=== PATIENT | female | born 1970 | race Caucasian/White ===

== ENCOUNTER 2018-09-26 08:06 | Inpatient (IN) ==
[2018-09-26 09:03] LABS: Baso % (Auto) 0.2 % (0.0-2.0); Hematocrit 34.6 % (35.0-46.0); Hemoglobin 12.1 gm/dL (11.6-15.3); Lymph % (Auto) 6.9 % (9.0-44.0); Mean Corpuscular HGB Conc 35.1 % (32.0-36.0); Mean Corpuscular Hemoglobin 32.3 pg (27.0-34.0); Mean Corpuscular Volume 92.1 fL (80.0-100.0); Mean Platelet Volume 7.7 fL (7.0-11.0); Mono # (Auto) 0.8 th/mm3 (0.0-0.9); Mono % (Auto) 5.2 % (0.0-8.0); Neut # (Auto) 12.8 th/mm3 (1.8-7.7); Neut % (Auto) 87.7 % (16.0-70.0); Platelet Count 308 th/mm3 (150-450); Red Blood Count 3.76 mil/mm3 (4.00-5.30); Red Cell Distribution Width 13.2 % (11.6-17.2); White Blood Count 14.6 th/mm3 (4.0-11.0)
[2018-09-26] MEDS ORDERED: Diatrizoate Meglum/Diatrizoate Sod Liq 9 ML UDC PO ONE (09:14)
[2018-09-26] MEDS ORDERED: Morphine Inj 4 MG/ML Vial IV.PUSH ONE ×3 (09:14→12:45)
[2018-09-26] MEDS ORDERED: Sod Chloride 0.9% Inj 1,000 ML IV.SIG SCH (09:15)
[2018-09-26 09:16] LABS: Anion Gap 9 meq/L (5-15); Aspartate Aminotransferase 10 U/L (15-37); Blood Urea Nitrogen 16 mg/dL (7-18); Calcium 8.2 mg/dL (8.5-10.1); Carbon Dioxide 27.2 meq/L (21.0-32.0); Chloride 103 meq/L (98-107); Glomerular Filtration Rate Greater Than 89 mL/min (>89); Glucose,Random 147 mg/dL (74-106); Lipase 118 U/L (73-393); Potassium 3.1 meq/L (3.5-5.1); Sodium 139 meq/L (136-145)
[2018-09-26 09:17] LABS: Alanine Aminotransferase 11 U/L (10-53)
[2018-09-26 09:20] LABS: Alkaline Phosphatase 67 U/L (45-117); Total Protein 6.9 g/dL (6.4-8.2)
--- NOTE | 2018-09-26 09:24 | ED ---
HPI General Chief complaint: Abdominal Pain Stated complaint: Abd Pain/Right Side/Fever Symptoms Time Seen by Provider: 09/26/18 09:21 Source: patient Mode of arrival: ambulatory Limitations: no limitations History of Present Illness HPI narrative: 48-year-old female here for evaluation of abdominal pain. The patient reports that 2 weeks ago she began to have lower abdominal pain that was described as sharp/crampy. She attributed this pain to her menstrual period. Over the last 4 days she began to notice right upper quadrant abdominal pain that was also described as sharp as well as dark urine. She called a pharmacy and was started on nitrofurantoin for suspected UTI. When she woke up this morning she had 4 episodes of bilious/nonbloody emesis. Bowel movements have been normal. She reports having a fever for the last 4 days as high as 100.8 F. Her pain is mainly located in the right upper quadrant of her abdomen, however she does have lower abdominal discomfort as well as diffuse abdominal discomfort. Her pain is worse with movements and palpation. No dysuria, hematuria, or pyuria. History of section and bilateral tubal ligation. No other abdominal surgeries. Related Data Home Medications Medication Instructions Recorded Confirmed benzonatate [Tessalon Perles] 200 mg PO TID PRN 09/26/18 09/26/18 bupropion HCl 100 mg PO BID 09/26/18 09/26/18 carisoprodol [Soma] 250 mg PO QID PRN 09/26/18 09/26/18 divalproex 750 mg PO QDRHS 09/26/18 09/26/18 nitrofurantoin macrocrystal 100 mg PO BID 09/26/18 09/26/18 Allergies Allergy/AdvReac Type Severity Reaction Status Date / Time penicillin G Allergy Severe RESPIRATORY Verified 09/26/18 11:03 ARREST Sulfa (Sulfonamide Allergy Severe HIVES Verified 09/26/18 11:03 Antibiotics) Review of Systems ROS: all other systems reviewed are negative [facility] Medical History Medical History COPD (chronic obstructive pulmonary disease) (Acute) delivery delivered (Acute) Surgical History Surgical History H/O tubal ligation (Acute) Social History Social History Substance History: No History of Abuse Second Hand Smoke Exposure: Yes Smoking Status: Current every day smoker Tobacco Type: Cigarettes How Often Do You Have a Drink Containing Alcohol: Monthly or less Recent Travel in [facility] within the Last 8 Weeks: No Recent Out of Country Travel within the Last 8 Weeks: No Exam Narrative Exam Narrative: GENERAL: Well-developed, well-nourished, no apparent distress. SKIN: Focused skin assessment warm/dry. No rash. HEAD: Atraumatic. Normocephalic. EYES: Pupils equal and round. No scleral icterus. No injection or drainage. ENT: No nasal bleeding or discharge. Mucous membranes pink and moist. NECK: Trachea midline. No JVD. CARDIOVASCULAR: Regular rate and rhythm. No murmur appreciated. RESPIRATORY: No accessory muscle use. Clear to auscultation. Breath sounds equal bilaterally. GASTROINTESTINAL: Abdomen soft, nondistended. Mild epigastric and right upper quadrant abdominal tenderness. Moderate right lower quadrant tenderness without peritoneal signs. The rest of her abdomen is mildly tender without peritoneal signs. No hernias. Normal bowel sounds. MUSCULOSKELETAL: No obvious deformities. No clubbing. No cyanosis. No edema. No CVA tenderness. NEUROLOGICAL: Awake and alert. No obvious cranial nerve deficits. Motor grossly within normal limits. Normal speech. PSYCHIATRIC: Appropriate mood and affect; insight and judgment normal. Course Initial Documented Vital Signs Temperature 99.5 F 09/26/18 08:10 Pulse Rate 105 H 09/26/18 08:10 Respiratory Rate 18 09/26/18 08:10 Blood Pressure 140/65 09/26/18 08:10 Pulse Oximetry 100 09/26/18 08:10 Last Documented Vital Signs Temperature 99.5 F 09/26/18 08:10 Pulse Rate 87 09/26/18 09:30 Respiratory Rate 16 09/26/18 09:30 Blood Pressure 121/71 09/26/18 09:30 Pulse Oximetry 98 09/26/18 09:30 Medical Decision Making [facility] Narrative Medical decision making narrative: Vital signs reviewed and show a temp of 99.5 F. CBC is remarkable for WBC 14.6 with 87.7% neutrophils. CMP is remarkable for potassium 3.1, random glucose 147 UA shows small occult blood, few mucus. Right upper quadrant ultrasound: CONCLUSION:1. Multiple gallstones in the gallbladder with thickening of the gallbladder wall at 5 mm. This can be seen with acute or chronic cholecystitis.2. The common bile duct is dilated at 10 mm. No dilated biliary ducts are demonstrated at this time. Patient has a penicillin allergy and was therefore given a dose of IV Levaquin and IV Flagyl. CT abdomen pelvis: CONCLUSION:1. Thick-walled, distended gallbladder with pericholecystic fluid and cholelithiasis. Findings raise the possibility of acute cholecystitis. Clinical correlation is recommended.2. Mild central intrahepatic and extrahepatic biliary ductal dilatation. Correlation with alkaline phosphatase and bilirubin levels is suggested to rule out bladder obstruction.3. Hepatosplenomegaly.4. Markedly enlarged fibroid uterus.5. Mild degenerative changes throughout the thoracolumbar spine. Case discussed with on-call general surgeon Dr. Harris who will admit the patient to his service and plans for cholecystectomy. The patient was made aware of all findings and plan. Medical Screen Exam Complete: Yes Emergency Medical Condition: Yes Differential Diagnosis Differential Diagnosis: Cholelithiasis, cholecystitis, appendicitis, pancreatitis, gastritis, peptic ulcer disease, colitis, UTI, pyelonephritis, cystitis Lab Data Result diagrams: 09/26/18 08:20 09/26/18 08:20 POC Results POC Urine Results Negative Lab Results 09/26/18 09/26/18 09/26/18 Range/Units 08:20 08:20 09:15 WBC 14.6 H (4.0-11.0) th/mm3 RBC 3.76 L (4.00-5.30) mil/mm3 Hgb 12.1 (11.6-15.3) gm/dL Hct 34.6 L (35.0-46.0) % MCV 92.1 (80.0-100.0) fL MCH 32.3 (27.0-34.0) pg MCHC 35.1 (32.0-36.0) % RDW 13.2 (11.6-17.2) % Plt Count 308 (150-450) th/mm3 MPV 7.7 (7.0-11.0) fL Neut % (Auto) 87.7 H (16.0-70.0) % Lymph % (Auto) 6.9 L (9.0-44.0) % [place] % (Auto) 5.2 (0.0-8.0) % Eos % (Auto) 0.0 (0.0-4.0) % Baso % (Auto) 0.2 (0.0-2.0) % Neut # (Auto) 12.8 H (1.8-7.7) th/mm3 Lymph # (Auto) 1.0 (1.0-4.8) th/mm3 Butler # (Auto) 0.8 (0.0-0.9) th/mm3 Eos # (Auto) 0.0 (0.0-0.4) th/mm3 Baso # (Auto) 0.0 (0.0-0.2) th/mm3 WBC Differential . Differential Comment Auto diff final PT (9.8-11.6) sec INR Ratio APTT (23.4-31.7) sec Sodium 139 (136-145) meq/L Potassium 3.1 L (3.5-5.1) meq/L Chloride 103 (98-107) meq/L Carbon Dioxide 27.2 (21.0-32.0) meq/L Anion Gap 9 (5-15) meq/L BUN 16 (7-18) mg/dL Creatinine 0.65 (0.50-1.00) mg/dL Estimated GFR Greater than 89 (>89) mL/min Random Glucose 147 H (74-106) mg/dL Calcium 8.2 L (8.5-10.1) mg/dL Magnesium 2.0 (1.5-2.5) mg/dL Total Bilirubin 0.1 L (0.2-1.0) mg/dL AST 10 L (15-37) U/L ALT 11 (10-53) U/L Alkaline Phosphatase 67 (45-117) U/L Total Protein 6.9 (6.4-8.2) g/dL Albumin 3.0 L (3.4-5.0) g/dL Lipase 118 (73-393) U/L Urine Color Yellow (Yellw/Straw) Urine Clarity Clear (Clear) Urine pH 6.0 (5.0-8.5) Ur Specific [place] 1.020 (1.002-1.035) Urine Protein Negative (Neg-Trace) mg/dL Urine Glucose (UA) Negative (Negative) mg/dL Urine Ketones Negative (Negative) mg/dL Urine Occult Blood Small H (Negative) Urine Nitrate Negative (Negative) Urine Bilirubin Negative (Negative) Urine Urobilinogen Less than 2 (Less than 2) mg/dL Ur Leukocyte Esterase Negative (Negative) Urine RBC 1 (0-3) /hpf Urine WBC Less than 1 (0-5) /hpf Ur Squamous Epith Cells 1 (0-5) /hpf Urine Mucus Few H (Occasional) /lpf Micro UA Comment Culture not ind Ur Microscopic Review Not Reportable Urine Culture Comments Culture not ind 09/26/18 Range/Units 09:20 WBC (4.0-11.0) th/mm3 RBC (4.00-5.30) mil/mm3 Hgb (11.6-15.3) gm/dL Hct (35.0-46.0) % MCV (80.0-100.0) fL MCH (27.0-34.0) pg MCHC (32.0-36.0) % RDW (11.6-17.2) % Plt Count (150-450) th/mm3 MPV (7.0-11.0) fL Neut % (Auto) (16.0-70.0) % Lymph % (Auto) (9.0-44.0) % Butler % (Auto) (0.0-8.0) % Eos % (Auto) (0.0-4.0) % Baso % (Auto) (0.0-2.0) % Neut # (Auto) (1.8-7.7) th/mm3 Lymph # (Auto) (1.0-4.8) th/mm3 Butler # (Auto) (0.0-0.9) th/mm3 Eos # (Auto) (0.0-0.4) th/mm3 Baso # (Auto) (0.0-0.2) th/mm3 WBC Differential Differential Comment PT 9.9 (9.8-11.6) sec INR 1.0 Ratio APTT 32.1 H (23.4-31.7) sec Sodium (136-145) meq/L Potassium (3.5-5.1) meq/L Chloride (98-107) meq/L Carbon Dioxide (21.0-32.0) meq/L Anion Gap (5-15) meq/L BUN (7-18) mg/dL Creatinine (0.50-1.00) mg/dL Estimated GFR (>89) mL/min Random Glucose (74-106) mg/dL Calcium (8.5-10.1) mg/dL Magnesium (1.5-2.5) mg/dL Total Bilirubin (0.2-1.0) mg/dL AST (15-37) U/L ALT (10-53) U/L Alkaline Phosphatase (45-117) U/L Total Protein (6.4-8.2) g/dL Albumin (3.4-5.0) g/dL Lipase (73-393) U/L Urine Color (Yellw/Straw) Urine Clarity (Clear) Urine pH (5.0-8.5) Ur Specific [place] (1.002-1.035) Urine Protein (Neg-Trace) mg/dL Urine Glucose (UA) (Negative) mg/dL Urine Ketones (Negative) mg/dL Urine Occult Blood (Negative) Urine Nitrate (Negative) Urine Bilirubin (Negative) Urine Urobilinogen (Less than 2) mg/dL Ur Leukocyte Esterase (Negative) Urine RBC (0-3) /hpf Urine WBC (0-5) /hpf Ur Squamous Epith Cells (0-5) /hpf Urine Mucus (Occasional) /lpf Micro UA Comment Ur Microscopic Review Urine Culture Comments Imaging Data Radiologist's impression: Abdomen/Pelvis CT 09/26/18 09:14 CONCLUSION: 1. Thick-walled, distended gallbladder with pericholecystic fluid and cholelithiasis. Findings raise the possibility of acute cholecystitis. Clinical correlation is recommended. 2. Mild central intrahepatic and extrahepatic biliary ductal dilatation. Correlation with alkaline phosphatase and bilirubin levels is suggested to rule out bladder obstruction. 3. Hepatosplenomegaly. 4. Markedly enlarged fibroid uterus. 5. Mild degenerative changes throughout the thoracolumbar spine. Gallbladder Ultrasound 09/26/18 09:14 CONCLUSION: 1. Multiple gallstones in the gallbladder with thickening of the gallbladder wall at 5 mm. This can be seen with acute or chronic cholecystitis. 2. The common bile duct is dilated at 10 mm. No dilated biliary ducts are demonstrated at this time. Discharge Plan Discharge Disposition Patient Disposition: ED Admit(ED Internal Use Only) Discharge Condition Condition: Stable Discharge Details Diagnosis: Acute cholecystitis, Cholelithiasis, Uterine fibroid Physicians Team ED Provider: Amari Burks Primary Care Provider: Primary Care Physici,Shannon Rxs /Orders / Referrals /Forms Prescriptions: No Action divalproex 250 mg Tablet,Delayed Release (Dr/Ec) 750 mg PO QDRHS RF: 0 bupropion HCl 100 mg Tablet 100 mg PO BID RF: 0 benzonatate [Tessalon Perles] 100 mg Capsule 200 mg PO TID PRN (Reason: COUGH) RF: 0 nitrofurantoin macrocrystal 100 mg Capsule 100 mg PO BID RF: 0 carisoprodol [Soma] 250 mg Tablet 250 mg PO QID PRN (Reason: Spasms) RF: 0 Discharge Interventions Interventions: Vital Signs Last Done: 09/26/18 09:30 Status ED Status: With Doctor
[2018-09-26 09:46] LABS: Bilirubin,Urine Negative (Negative); Clarity,Urine Clear (Clear); Color,Urine Yellow (Yellw/Straw); Glucose,Urine (UA) Negative (Negative); Leukocyte Esterase,Urine Negative (Negative); Mucus,Urine Few /lpf (Occasional); Nitrite,Urine Negative (Negative); Squamous Epithelial Cell,Urine 1 /hpf (0-5)
[2018-09-26 09:48] LABS: Activated Partial Thrombo Time 32.1 sec (23.4-31.7); Prothrombin Time 9.9 sec (9.8-11.6)
--- NOTE | 2018-09-26 10:28 | US ---
EXAM DATE: 09/26/2018 10:23 AM EST AGE/SEX: 48 years / Female INDICATIONS: Right upper quadrant pain. CLINICAL DATA: This is the patient's initial encounter. Patient reports that signs and symptoms have been present for 2 weeks and indicates a pain score of 7/10. MEDICAL/SURGICAL HISTORY: Chronic obstructive pulmonary disease. section. COMPARISON: No prior exams available for comparison. MEASUREMENTS: Liver:__ 19.0 cm. Common Bile Duct:__ 10mm. FINDINGS: Liver: Normal echogenicity without focal lesion or ductal dilatation. Portal Vein: Hepatopedal flow seen in portal vein. Common Duct: No intraluminal mass or stone visualized. Gallbladder: There are gallstones in the gallbladder. No fluid is seen around the gallbladder. The g allbladder wall is thickened at 5 mm. Pancreas: The visualized portions are within normal limits Right Kidney: Normal echogenicity and cortical thickness. No mass or hydronephrosis. Other: None. CONCLUSION: 1. Multiple gallstones in the gallbladder with thickening of the gallbladder wall at 5 mm. This can be seen with acute or chronic cholecystitis. 2. The common bile duct is dilated at 10 mm. No dilated biliary ducts are demonstrated at this time. Electronically signed by: Everette Clayton MD Board Certified Radiologist 09/26/2018 10:26 AM EST
--- NOTE | 2018-09-26 12:32 | CT ---
EXAM DATE: 09/26/2018 12:22 PM EST AGE/SEX: 48 years / Female INDICATIONS: Right lower quadrant pain and vomiting. CLINICAL DATA: This is the patient's initial encounter. Patient reports that signs and symptoms have been present for 2 weeks and indicates a pain score of 4/10. MEDICAL/SURGICAL HISTORY: Chronic obstructive pulmonary disease. section. Tubal ligat ion. ORAL CONTRAST: Prescribed oral contrast ingested. RADIATION DOSE: 6.64 CTDI (mGy) COMPARISON: [facility] [place], [place] ABDOMEN - GALLBLADDER, 09/26/2018. . TECHNIQUE: Multiple contiguous axial images were obtained through the abdomen and pelvis following b olus infusion of 75 ml Omnipaque 350 (iohexol) nonionic water-soluble contrast as a single exam dos e. Prescribed oral contrast ingested. Using automated exposure control and adjustment of the mA and/ or kV according to patient size, radiation dose was kept as low as reasonably achievable to obtain op timal diagnostic quality images. DICOM format image data is available electronically for review and comparison. FINDINGS: Lower Lungs: The visualized lower lungs are clear. Liver: The liver is enlarged. Mild central intrahepatic and extrahepatic biliary ductal dilatation is noted. Correlation with alkaline phosphatase and bilirubin levels is suggested to rule out biliary o bstruction. The distended gallbladder demonstrates a thickened wall and contains a gallstone. Mild pe richolecystic fluid is also noted. The findings raise the possibility of acute cholecystitis. Clinica l correlation is recommended. Spleen: The spleen is mildly enlarged. Pancreas: Unremarkable without mass or calcification. Kidneys: Normal in size and shape. No evidence of mass or hydronephrosis. Adrenal Glands: Unremarkable. Aorta: The aorta and proximal iliac vessels are grossly unremarkable without aneurysmal dilation. Bowel/Mesentery: The bowel loops are grossly unremarkable. The cecum and sigmoid colon have a normal configuration. The appendix is normal. Abdominal Wall: Intact. Retroperitoneum: No evidence of adenopathy in the retrocrural, para-aortic, or deep pelvic regions. Bladder: Contours are smooth. Reproductive Organs: The uterus is markedly enlarged and contains multiple fibroids. The largest fib roid measures 10 cm in size. Inguinal: The inguinal region is unremarkable without evidence of adenopathy. Bony Structures: Mild degenerative changes are noted throughout the thoracolumbar spine. CONCLUSION: 1. Thick-walled, distended gallbladder with pericholecystic fluid and cholelithiasis. Findings raise the possibility of acute cholecystitis. Clinical correlation is recommended. 2. Mild central intrahepatic and extrahepatic biliary ductal dilatation. Correlation with alkaline p hosphatase and bilirubin levels is suggested to rule out bladder obstruction. 3. Hepatosplenomegaly. 4. Markedly enlarged fibroid uterus. 5. Mild degenerative changes throughout the thoracolumbar spine. Electronically signed by: Jose Gusman MD Board Certified Radiologist 09/26/2018 12:31 PM EST
[2018-09-26] MEDS ORDERED: Bupivacaine/Epinephrine Inj 0.25% 50 ML Vial ONE (13:41)
[2018-09-26] MEDS ORDERED: fentaNYL Citrate Inj 100 MCG/2 ML Ampul ONE (14:28)
--- NOTE | 2018-09-26 14:48 | P.HPGS ---
History of Present Illness Service: General Surgery Primary Care Physician: No Primary Care Physician History of Present Illness: 48 yo F c/o lower abdominal pain for about two weeks associated with her menstrual cycle. She frequently has mentrual cramping. Menses started at three weeks instead of 4 weeks and she thought maybe she was perimenopausal. She is not very clear on the details but it seems that a few days ago the pain began to be more in the right upper quadrant with also some persistent pain in the right lower quadrant. + emesis. A few days ago urine was dark and she received macrobid from some sort of online service for possible uti. Urine has improved in color since then. PSH includes c section and tubal ligation. She has 30 pack year smoking history and O2 sats in preop are 85-90%. - Diagnosis (1) Acute cholecystitis (2) Uterine fibroid Inpatient Certification: I certify that the inpatient services were ordered in accordance with Medicare regulations governing the order. This includes certification that hospital inpatient services are reasonable and necessary and in the case of services not specified as inpatient-only under 42 CFR 419.22(n), that they are appropriately provided as inpatient services in accordance to with the 2-midnight benchmark under 43 CFR 412.3(e) Review of Systems All other systems reviewed negative except as stated in HPI PMFSH - History History Provided By: Patient - Medical History Medical History: Medical History (Last Updated 09/26/18 @ 08:12 by Flaca King) COPD (chronic obstructive pulmonary disease) delivery delivered - Surgical History Surgical History: Surgical History (Last Updated 09/26/18 @ 08:12 by Flaca King) H/O tubal ligation - Tobacco History Second Hand Smoke Exposure: Yes Tobacco Use In Past 30 Days: Yes Smoking Status: Current every day smoker Tobacco Type: Cigarettes - Alcohol History How Often Do You Have a Drink Containing Alcohol: Monthly or less - Substance Use History Substance History: No History of Abuse - Travel History Recent Travel in the [place] Within the Last 8 Weeks: No Recent Travel Out of the Country Within the Last 8 Weeks: No - Immunization History Tetanus Immunization: <5 Years Medications and Allergies Allergies Allergy/AdvReac Type Severity Reaction Status Date / Time penicillin G Allergy Severe RESPIRATORY Verified 09/26/18 11:03 ARREST Sulfa (Sulfonamide Allergy Severe HIVES Verified 09/26/18 11:03 Antibiotics) Home Medications Medication Instructions Recorded Confirmed Type benzonatate [Tessalon Perles] 200 mg PO TID PRN 09/26/18 09/26/18 History bupropion HCl 100 mg PO BID 09/26/18 09/26/18 History carisoprodol [Soma] 250 mg PO QID PRN 09/26/18 09/26/18 History divalproex 750 mg PO QDRHS 09/26/18 09/26/18 History nitrofurantoin macrocrystal 100 mg PO BID 09/26/18 09/26/18 History Exam Vital signs: Vital Signs 09/26/18 08:10 09/26/18 09:00 09/26/18 09:30 Temperature 99.5 F Pulse Rate 105 H 90 87 Respiratory Rate 18 16 16 Blood Pressure 140/65 121/71 121/71 Pulse Oximetry 100 98 98 09/26/18 14:05 Temperature Pulse Rate 67 Respiratory Rate 16 Blood Pressure 124/78 Pulse Oximetry Intake & Output 09/25/18 09/26/18 09/26/18 18:59 06:59 18:59 Intake Total 1300 / 1300 Balance 1300 / 1300 Weight 52.163 kg Intake: IV 1300 / 1300 Levaquin 750 mg Premix Inj 150 200 / 200 ML @ 100 mls/hr IV.SIG ONCE ONE Rx#:[id number] NS Inj 1,000 ML @ 1000 mls/hr 1000 / 1000 IV.SIG BOLUS [facility]II Rx#:[id number] Flagyl 500 MG Inj 100 ML @ 100 100 / 100 mls/hr IV.SIG ONCE ONE Rx#: [id number] Narrative: GENERAL: Awake and alert. No acute distress. Cooperative. HEAD: Normocephalic. Atraumatic. EYES: Pupils equal round and reactive to light bilaterally. No scleral icterus. ENT: Moist oral mucosa. NECK: Trachea midline. CHEST: Lungs clear to auscultation bilaterally with no wheezing or rhonchi. No respiratory distress. CARDIOVASCULAR: Regular rate and rhythm. ABDOMEN: mild RLQ ttp, moderate RUQ ttp. EXTREMITIES: No cyanosis or edema. SKIN: Warm, dry, nonjaundiced. Results - Labs 09/26/18 08:20 09/26/18 08:20 Laboratory Results - last 24 hr 09/26/18 09/26/18 09/26/18 08:20 08:20 09:15 WBC 14.6 H RBC 3.76 L Hgb 12.1 Hct 34.6 L MCV 92.1 MCH 32.3 MCHC 35.1 RDW 13.2 Plt Count 308 MPV 7.7 Neut % (Auto) 87.7 H Lymph % (Auto) 6.9 L [place] % (Auto) 5.2 Eos % (Auto) 0.0 Baso % (Auto) 0.2 Neut # (Auto) 12.8 H Lymph # (Auto) 1.0 [place] # (Auto) 0.8 Eos # (Auto) 0.0 Baso # (Auto) 0.0 WBC Differential . Differential Comment Auto diff final PT INR APTT Sodium 139 Potassium 3.1 L Chloride 103 Carbon Dioxide 27.2 Anion Gap 9 BUN 16 Creatinine 0.65 Estimated GFR Greater than 89 Random Glucose 147 H Calcium 8.2 L Magnesium 2.0 Total Bilirubin 0.1 L AST 10 L ALT 11 Alkaline Phosphatase 67 Total Protein 6.9 Albumin 3.0 L Lipase 118 Urine Color Yellow Urine Clarity Clear Urine pH 6.0 Ur Specific [place] 1.020 Urine Protein Negative Urine Glucose (UA) Negative Urine Ketones Negative Urine Occult Blood Small H Urine Nitrate Negative Urine Bilirubin Negative Urine Urobilinogen Less than 2 Ur Leukocyte Esterase Negative Urine RBC 1 Urine WBC Less than 1 Ur Squamous Epith Cells 1 Urine Mucus Few H Micro UA Comment Culture not ind Ur Microscopic Review Not Reportable Urine Culture Comments Culture not ind 09/26/18 09:20 WBC RBC Hgb Hct MCV MCH MCHC RDW Plt Count MPV Neut % (Auto) Lymph % (Auto) [place] % (Auto) Eos % (Auto) Baso % (Auto) Neut # (Auto) Lymph # (Auto) [place] # (Auto) Eos # (Auto) Baso # (Auto) WBC Differential Differential Comment PT 9.9 INR 1.0 APTT 32.1 H Sodium Potassium Chloride Carbon Dioxide Anion Gap BUN Creatinine Estimated GFR Random Glucose Calcium Magnesium Total Bilirubin AST ALT Alkaline Phosphatase Total Protein Albumin Lipase Urine Color Urine Clarity Urine pH Ur Specific [place] Urine Protein Urine Glucose (UA) Urine Ketones Urine Occult Blood Urine Nitrate Urine Bilirubin Urine Urobilinogen Ur Leukocyte Esterase Urine RBC Urine WBC Ur Squamous Epith Cells Urine Mucus Micro UA Comment Ur Microscopic Review Urine Culture Comments - Imaging Imaging: ITS Impressions Abdomen/Pelvis CT 09/26/18 09:14 CONCLUSION: 1. Thick-walled, distended gallbladder with pericholecystic fluid and cholelithiasis. Findings raise the possibility of acute cholecystitis. Clinical correlation is recommended. 2. Mild central intrahepatic and extrahepatic biliary ductal dilatation. Correlation with alkaline phosphatase and bilirubin levels is suggested to rule out bladder obstruction. 3. Hepatosplenomegaly. 4. Markedly enlarged fibroid uterus. 5. Mild degenerative changes throughout the thoracolumbar spine. Gallbladder Ultrasound 09/26/18 09:14 CONCLUSION: 1. Multiple gallstones in the gallbladder with thickening of the gallbladder wall at 5 mm. This can be seen with acute or chronic cholecystitis. 2. The common bile duct is dilated at 10 mm. No dilated biliary ducts are demonstrated at this time. CT scan - abdomen: report reviewed, image reviewed CT scan - pelvis: report reviewed, image reviewed US - abdomen: report reviewed Caprini VTE Risk Assessment Caprini VTE Risk Assessment: No/Low Risk (score <= 1) Caprini Risk Assessment Model: Point Value = 1 Point Value = 2 Point Value = 3 Point Value = 5 Age 41-60 Minor surgery BMI > 25 kg/m2 Swollen legs Varicose veins or History of unexplained or recurrent spontaneous Oral contraceptives or hormone replacement Sepsis (< 1 month) Serious lung disease, including pneumonia (< 1 month) Abnormal pulmonary function Acute myocardial infarction Congestive heart failure (< 1 month) History of inflammatory bowel disease Medical patient at bed rest Age 61-74 Arthroscopic surgery Major open surgery (> 45 min) Laparoscopic surgery (> 45 min) Malignancy Confined to bed (> 72 hours) Immobilizing plaster cast Central venous access Age >= 75 History of VTE Family history of VTE Factor V Leiden Prothrombin [id number] Lupus anticoagulant Anticardiolipin antibodies Elevated serum homocysteine Heparin-induced thrombocytopenia Other congenital or acquired thrombophilia Stroke (< 1 month) Elective arthroplasty Hip, pelvis, or leg fracture Acute spinal cord injury (< 1 month) Prophylaxis Regimen: Total Risk Factor Score Risk Level Prophylaxis Regimen 0-1 Low Early ambulation 2 Moderate Order ONE of the following: *Sequential Compression Device (SCD) *Heparin 5000 units SQ BID 3-4 Higher Order ONE of the following medications: *Heparin 5000 units SQ TID *Enoxaparin/Lovenox 40 mg SQ daily (WT < 150 kg, CrCl > 30 mL/min) *Enoxaparin/Lovenox 30 mg SQ daily (WT < 150 kg, CrCl > 10-29 mL/min) *Enoxaparin/Lovenox 30 mg SQ BID (WT < 150 kg, CrCl > 30 mL/min) AND/OR *Sequential Compression Device (SCD) 5 or more Highest Order ONE of the following medications: *Heparin 5000 units SQ TID (Preferred with Epidurals) *Enoxaparin/Lovenox 40 mg SQ daily (WT < 150 kg, CrCl > 30 mL/min) *Enoxaparin/Lovenox 30 mg SQ daily (WT < 150 kg, CrCl > 10-29 mL/min) *Enoxaparin/Lovenox 30 mg SQ BID (WT < 150 kg, CrCl > 30 mL/min) AND *Sequential Compression Device (SCD) Assessment and Plan - Assessment (1) Acute cholecystitis Code(s): K81.0 - Acute cholecystitis Status: Acute (2) Uterine fibroid Code(s): D25.9 - Leiomyoma of uterus, unspecified Status: Acute Qualifiers: Uterine leiomyoma location: unspecified location Qualified Code(s): D25.9 - Leiomyoma of uterus, unspecified - Plan She has acute cholecystitis and possibly a secondary cause of symptoms such as uterine fibroids. I recommend to proceed with laparoscopic cholecystectomy, possible open, possible intraoperative cholangiogram. I will also visualize the pelvis to be sure there are no gross abnormalities.
[2018-09-26] MEDS ORDERED: Ketamine Inj 50 MG/5 ML Syringe IV.PUSH ONE (15:47)
[2018-09-26] MEDS ORDERED: Lidocaine 2% 100 MG/5 ML Syringe ONE (15:48)
[2018-09-26] MEDS: Ketorolac Inj 30 MG/ML (IVP) Vial IV.PUSH SCH ×2 (16:15→22:38)
[2018-09-26] MEDS ORDERED: Zolpidem Tartrate 5 MG Tablet PO PRN (16:29)
[2018-09-26] MEDS ORDERED: Post-op Orders (for Pharmacy) OTHER ONE (16:29)
[2018-09-26] MEDS ORDERED: Naloxone Inj 0.4 MG/ML Vial IV.PUSH PRN (16:29)
--- NOTE | 2018-09-26 16:41 | P.OP ---
- Preoperative Diagnosis (1) Acute cholecystitis (2) Uterine fibroid - Postoperative Diagnosis (1) Appendiceal abscess (2) Acute cholecystitis Date of procedure: 09/26/18 Procedure: Laparoscopic cholecystectomy Laparoscopic drainage of appendiceal abscess and appendectomy Anesthesia: HEMANTH Surgeon: Lm Harris MD Carbon Dioxide Operator: Sudha CARSON Estimated blood loss (mL): 20 Pathology: other (appendix, gallbladder) Operation and Findings: Operative findings: Gallbladder was acutely inflamed with significant edema in the gallbladder wall. Large gallstone. Lower abdomen was evaluated. The uterus was enlarged. The appendix appeared thickened and indurated. Therefore after discussion with the by phone I proceeded with appendectomy. During dissection a large abscess cavity with a significant amount of pus was drained. Procedure in detail: The patient was taken to the operating room and placed in the supine position. General endotracheal anesthesia was induced. The abdomen was prepped and draped in usual sterile fashion and a surgical timeout was performed to verify correct patient procedure and site. Appropriate perioperative antibiotics were administered. Local anesthetic was injected in the skin and subcutaneous tissue superior to the umbilicus and a 5 mm incision performed. The abdomen was entered using the Optiview 5 mm trocar with direct laparoscopic visualization. The abdomen was then insufflated to 15 mmHg with CO2 gas which the patient tolerated well. Next a 12 mm port was placed in the epigastrium and two 5 mm ports in the right upper quadrant and right lateral abdomen. The patient was placed in reverse Trendelenburg position and turned slightly to the left. Attention was turned to the right upper quadrant and the dome of the gallbladder was grasped and retracted cephalad. The gallbladder was distended with thickened edematous wall. The infundibulum was retracted laterally to expose Calot's triangle. Blunt dissection and judicious use of electrocautery was used to expose the cystic duct and the cystic artery directly entering the gallbladder. Two clips were placed proximally on each of these structures and one distally and they were transected. The gallbladder was then removed from the liver bed using electrocautery. Hemostasis was achieved and Surgicel powder was required at a small site near the cystic duct stump.. The gallbladder was then removed from the abdomen using an Endo Catch bag. The clips were in place on the cystic duct and cystic artery stumps with no bleeding or bile leakage. The patient was then placed in Trendelenburg position. She was turned slightly to the left. The uterus was noted to be enlarged. The left ovary appeared to have a cyst present. The right tube and ovary were not able to be visualized. The appendix appeared thickened and indurated. Therefore after discussion with the I proceeded with appendectomy. Another 5 mm port was placed in the lower midline. On further dissection while dissecting the mesoappendix from the retroperitoneum carefully a large abscess cavity with copious pus was encountered. The pus was drained. The appendix was freed from surrounding structures in the pelvis with careful blunt dissection. The mesoappendix was then taken down with the harmonic scalpel. 2 #1 PDS Endoloops were placed at the base base the appendix and it was then transected. The appendix was removed using an Endo Catch bag. The abscess cavity was irrigated and the lower abdomen irrigated. A 19 Thai round [place] drain was placed through the right lateral port site and secured with 2-0 nylon. It was positioned in the right lower abdomen. At this point, the abdomen was allowed to desufflate and trochars were removed. The fascia at the 12 mm port site was closed with 0 Vicryl suture. Skin was closed with subcuticular 4-0 Monocryl as well as Dermabond. The patient tolerated the procedure well and was extubated and taken to PACU in stable condition. All sponge and instrument counts were correct.
[2018-09-26] MEDS ORDERED: *morphine SULFATE 10 MG/ML PERIprocedure ONLY ONE (16:51)
[2018-09-26] MEDS ORDERED: *Meperidine Inj 25 MG/ML Vial PERIprocedural Use ONLY ONE (17:01)
[2018-09-26] MEDS: HYDROmorphone PF Inj 1 MG/ML Ampul IV.PUSH PRN ×2 (19:46→23:40)
[2018-09-27] MEDS: HYDROmorphone PF Inj 1 MG/ML Ampul IV.PUSH PRN ×4 (02:37→21:25)
[2018-09-27] MEDS: Ketorolac Inj 30 MG/ML (IVP) Vial IV.PUSH SCH ×4 (04:58→23:15)
[2018-09-27 05:23] LABS: Baso % (Auto) 0.2 % (0.0-2.0); Hematocrit 34.7 % (35.0-46.0); Hemoglobin 12.1 gm/dL (11.6-15.3); Lymph # (Auto) 1.2 th/mm3 (1.0-4.8); Mean Corpuscular Hemoglobin 31.8 pg (27.0-34.0); Mean Platelet Volume 7.7 fL (7.0-11.0); Mono # (Auto) 0.6 th/mm3 (0.0-0.9); Mono % (Auto) 6.7 % (0.0-8.0); Neut # (Auto) 7.3 th/mm3 (1.8-7.7); Neut % (Auto) 80.1 % (16.0-70.0); Platelet Count 280 th/mm3 (150-450); Red Blood Count 3.82 mil/mm3 (4.00-5.30); Red Cell Distribution Width 13.1 % (11.6-17.2)
--- NOTE | 2018-09-27 07:44 | P.PNGS ---
Subjective Interval history: C/o multiple episodes of emesis overnight. Unsure if related to pain med administration. Has not had anything by mouth yet. WBC normal. In some pain. Afebrile. Physical Exam Vital signs: Vital Signs 09/26/18 08:10 09/26/18 09:00 09/26/18 09:30 Temperature 99.5 F Pulse Rate 105 H 90 87 Respiratory Rate 18 16 16 Blood Pressure 140/65 121/71 121/71 Pulse Oximetry 100 98 98 09/26/18 14:05 09/26/18 14:15 09/26/18 14:18 Temperature 98.0 F 99.3 F Pulse Rate 67 64 98 H Respiratory Rate 16 16 18 Blood Pressure 124/78 118/74 112/66 Pulse Oximetry 92 L 09/26/18 16:42 09/26/18 16:58 09/26/18 17:11 Temperature 98.1 F 98.4 F Pulse Rate 114 H 99 H 96 H Respiratory Rate 20 20 18 Blood Pressure 132/75 119/56 L 123/61 Pulse Oximetry 95 96 96 09/26/18 20:00 09/26/18 20:16 09/26/18 20:38 Temperature 97.2 F L Pulse Rate 76 78 Respiratory Rate 18 18 18 Blood Pressure 152/75 H Pulse Oximetry 99 98 09/26/18 22:54 09/26/18 23:08 09/27/18 00:00 Temperature 97.2 F L Pulse Rate 77 Respiratory Rate 18 18 18 Blood Pressure 114/60 Pulse Oximetry 98 09/27/18 00:10 09/27/18 03:07 09/27/18 03:23 Temperature Pulse Rate 74 Respiratory Rate 18 18 18 Blood Pressure Pulse Oximetry 09/27/18 04:00 09/27/18 05:13 09/27/18 05:28 Temperature 97.5 F L Pulse Rate 82 Respiratory Rate 18 18 18 Blood Pressure 144/65 H Pulse Oximetry 96 09/27/18 06:36 Temperature Pulse Rate Respiratory Rate 18 Blood Pressure Pulse Oximetry Intake & Output 09/26/18 09/27/18 09/27/18 18:59 06:59 18:59 Intake Total 2100 / 2100 1500 / 1500 100 / 100 Output Total 95 / 95 340 / 340 Balance 2004 / 2004 1160 / 1160 100 / 100 Weight 52.163 kg 54.9 kg Intake: IV 1300 / 1300 1500 / 1500 100 / 100 LR 1000 mL Inj 1,000 ML @ 100 1000 / 1000 mls/hr IV.CONT .Q10H [facility], [facility]1983 Rx#: [id number] Ofirmev Inj 1,000 mg In 100 ml 300 / 300 @ 400 mls/hr IV.SIG Q6H [facility], [facility]1983 Rx# :[id number] Levaquin 750 mg Premix Inj 150 200 / 200 ML @ 100 mls/hr IV.SIG ONCE ONE Rx#:[id number] NS Inj 1,000 ML @ 1000 mls/hr 1000 / 1000 IV.SIG BOLUS [facility], [facility]1983 Rx#:[id number] Flagyl 500 MG Inj 100 ML @ 100 100 / 100 200 / 200 100 / 100 mls/hr IV.SIG Q6H [facility], [facility]1983 Rx#: [id number] Anesthesia Amount 800 / 800 Output: Urine 300 / 300 Estimated Blood Loss 20 Wound Drainage 75 / 75 40 / 40 # 1 Abdomen 75 / 75 40 / 40 Other: # Voids 3 Weight On Admission 52.163 kg Narrative: NAD Abd: soft, inc c/d/i, nondistended, CYNTHIA cloudy ss output Results - Labs 09/27/18 04:15 09/26/18 08:20 Laboratory Results - last 24 hr 09/26/18 09/26/18 09/26/18 08:20 08:20 09:15 WBC 14.6 H RBC 3.76 L Hgb 12.1 Hct 34.6 L MCV 92.1 MCH 32.3 MCHC 35.1 RDW 13.2 Plt Count 308 MPV 7.7 Neut % (Auto) 87.7 H Lymph % (Auto) 6.9 L [place] % (Auto) 5.2 Eos % (Auto) 0.0 Baso % (Auto) 0.2 Neut # (Auto) 12.8 H Lymph # (Auto) 1.0 [place] # (Auto) 0.8 Eos # (Auto) 0.0 Baso # (Auto) 0.0 WBC Differential . Differential Comment Auto diff final PT INR APTT Sodium 139 Potassium 3.1 L Chloride 103 Carbon Dioxide 27.2 Anion Gap 9 BUN 16 Creatinine 0.65 Estimated GFR Greater than 89 Random Glucose 147 H Calcium 8.2 L Magnesium 2.0 Total Bilirubin 0.1 L AST 10 L ALT 11 Alkaline Phosphatase 67 Total Protein 6.9 Albumin 3.0 L Lipase 118 Urine Color Yellow Urine Clarity Clear Urine pH 6.0 Ur Specific [place] 1.020 Urine Protein Negative Urine Glucose (UA) Negative Urine Ketones Negative Urine Occult Blood Small H Urine Nitrate Negative Urine Bilirubin Negative Urine Urobilinogen Less than 2 Ur Leukocyte Esterase Negative Urine RBC 1 Urine WBC Less than 1 Ur Squamous Epith Cells 1 Urine Mucus Few H Micro UA Comment Culture not ind Ur Microscopic Review Not Reportable Urine Culture Comments Culture not ind 09/26/18 09/27/18 09:20 04:15 WBC 9.0 RBC 3.82 L Hgb 12.1 Hct 34.7 L MCV 91.0 MCH 31.8 MCHC 35.0 RDW 13.1 Plt Count 280 MPV 7.7 Neut % (Auto) 80.1 H Lymph % (Auto) 13.0 [place] % (Auto) 6.7 Eos % (Auto) 0.0 Baso % (Auto) 0.2 Neut # (Auto) 7.3 Lymph # (Auto) 1.2 [place] # (Auto) 0.6 Eos # (Auto) 0.0 Baso # (Auto) 0.0 WBC Differential . Differential Comment Auto diff final PT 9.9 INR 1.0 APTT 32.1 H Sodium Potassium Chloride Carbon Dioxide Anion Gap BUN Creatinine Estimated GFR Random Glucose Calcium Magnesium Total Bilirubin AST ALT Alkaline Phosphatase Total Protein Albumin Lipase Urine Color Urine Clarity Urine pH Ur Specific [place] Urine Protein Urine Glucose (UA) Urine Ketones Urine Occult Blood Urine Nitrate Urine Bilirubin Urine Urobilinogen Ur Leukocyte Esterase Urine RBC Urine WBC Ur Squamous Epith Cells Urine Mucus Micro UA Comment Ur Microscopic Review Urine Culture Comments - Imaging Imaging: ITS Impressions Abdomen/Pelvis CT 09/26/18 09:14 CONCLUSION: 1. Thick-walled, distended gallbladder with pericholecystic fluid and cholelithiasis. Findings raise the possibility of acute cholecystitis. Clinical correlation is recommended. 2. Mild central intrahepatic and extrahepatic biliary ductal dilatation. Correlation with alkaline phosphatase and bilirubin levels is suggested to rule out bladder obstruction. 3. Hepatosplenomegaly. 4. Markedly enlarged fibroid uterus. 5. Mild degenerative changes throughout the thoracolumbar spine. Gallbladder Ultrasound 09/26/18 09:14 CONCLUSION: 1. Multiple gallstones in the gallbladder with thickening of the gallbladder wall at 5 mm. This can be seen with acute or chronic cholecystitis. 2. The common bile duct is dilated at 10 mm. No dilated biliary ducts are demonstrated at this time. Assessment and Plan - Assessment (1) Acute cholecystitis Code(s): K81.0 - Acute cholecystitis Status: Acute (2) Uterine fibroid Code(s): D25.9 - Leiomyoma of uterus, unspecified Status: Acute - Plan POD 1 s/p lap lucila and lap appy with drainage of appendiceal abscess. + emesis overnight. Has not eaten anything yet. Continue fulls. D/w nursing observe if emesis related to any medications. Lore prn. Cont IV levaquin/flagyl. CYNTHIA to bulb suction. (2) Uterine fibroid Qualifiers: Uterine leiomyoma location: unspecified location Qualified Code(s): D25.9 - Leiomyoma of uterus, unspecified
[2018-09-28] MEDS: Ketorolac Inj 30 MG/ML (IVP) Vial IV.PUSH SCH ×2 (04:19→11:09)
--- NOTE | 2018-09-28 16:24 | P.PNGS ---
Subjective Patient reports: no new complaints, feels better, pain is less, tolerating liquids well, flatus, bowel movement (Overall feeling much better; no further nausea or emesis. ) Physical Exam Vital signs: Vital Signs 09/27/18 18:52 09/27/18 20:00 09/28/18 00:00 Temperature 98.7 F 98.7 F Pulse Rate 93 H 94 H Respiratory Rate 16 22 22 Blood Pressure 136/68 134/62 Pulse Oximetry 93 L 94 L 09/28/18 04:00 09/28/18 08:00 09/28/18 12:00 Temperature 98.7 F 98.4 F 98.0 F Pulse Rate 87 94 H 88 Respiratory Rate 20 19 18 Blood Pressure 114/57 L 127/58 L 136/61 Pulse Oximetry 93 L 91 L 96 Intake & Output 09/27/18 09/28/18 09/28/18 18:59 06:59 18:59 Intake Total 2050 / 2050 100 / 100 1350 / 1350 Output Total 790 / 790 430 / 430 Balance 1260 / 1260 -330 / -330 1350 / 1350 Weight 54.9 kg Intake: IV 1550 / 1550 100 / 100 1350 / 1350 LR 1000 mL Inj 1,000 ML @ 100 1000 / 1000 1000 / 1000 mls/hr IV.CONT .Q10H [facility] Rx#: [id number] Ofirmev Inj 1,000 mg In 100 ml 100 / 100 @ 400 mls/hr IV.SIG Q6H [facility] Rx# :[id number] Levaquin 750 mg Premix Inj 150 150 / 150 150 / 150 ML @ 100 mls/hr IV.SIG Q24H [facility] Rx#:[id number] Flagyl 500 MG Inj 100 ML @ 100 300 / 300 100 / 100 200 / 200 mls/hr IV.SIG Q6H [facility] Rx#: [id number] Oral 500 / 500 Output: Urine 400 / 400 200 / 200 Emesis 300 / 300 Wound Drainage 90 / 90 230 / 230 # 1 Abdomen 90 / 90 230 / 230 Other: # Bowel Movements 1 # Emeses 1 - Routine Abdominal Exam Present: soft Comments: Her abdomen is soft with incisional tenderness; there is no erythema, guarding, or rebound. The CYNTHIA site is clean; the drainage is lessening and is turning serous. Results - Labs 09/27/18 04:15 09/26/18 08:20 - Imaging Imaging: ITS Impressions Abdomen/Pelvis CT 09/26/18 09:14 CONCLUSION: 1. Thick-walled, distended gallbladder with pericholecystic fluid and cholelithiasis. Findings raise the possibility of acute cholecystitis. Clinical correlation is recommended. 2. Mild central intrahepatic and extrahepatic biliary ductal dilatation. Correlation with alkaline phosphatase and bilirubin levels is suggested to rule out bladder obstruction. 3. Hepatosplenomegaly. 4. Markedly enlarged fibroid uterus. 5. Mild degenerative changes throughout the thoracolumbar spine. Gallbladder Ultrasound 09/26/18 09:14 CONCLUSION: 1. Multiple gallstones in the gallbladder with thickening of the gallbladder wall at 5 mm. This can be seen with acute or chronic cholecystitis. 2. The common bile duct is dilated at 10 mm. No dilated biliary ducts are demonstrated at this time. Assessment and Plan - Assessment (1) Acute cholecystitis Code(s): K81.0 - Acute cholecystitis Status: Acute (2) Uterine fibroid Code(s): D25.9 - Leiomyoma of uterus, unspecified Status: Acute (3) Appendiceal abscess Code(s): K35.33 - Acute appendicitis with perforation and localized peritonitis , with abscess Status: Acute Plan: Patient will be discharged today with the CYNTHIA drain in place. Patient and will be taught how to care for it. She will be continued on Levaquin and Flagyl for another 7 days. She will return to see Dr. Harris in five days for a recheck and drain removal. (2) Uterine fibroid Qualifiers: Uterine leiomyoma location: unspecified location Qualified Code(s): D25.9 - Leiomyoma of uterus, unspecified
[2018-09-28 16:59] VITALS: BP 142/67; PULSE 93; RESP 19; TEMP 98.3; O2SAT 94
== END 2018-09-28 18:44 | disposition home or self-care (01) | DRG 417 ==
LOC: NEPD 08:06 → NEDA 12:48 → N07 17:25
PROVIDERS: ADMIT Surgery; ATTEND Surgery
CPT/HCPCS: 74177; 76705; 80053; 81001; 83690; 83735; 84703; 85025; 85610; 85730; 88304; 88341; 88342; 88343; 90761; 90765; 90766; 90768; 90775; 90776; 94150; 94640; 94664; 94665; 96361; 96365; 96366; 96368; 96375; 96376; 99285; G0461; G0462; J0131; J1170; J1885; J1956; J2175; J2250; J2270; J2405; J3010; J7030; J7120; Q9963; Q9967